=== PATIENT | male | born 1960 | race Caucasian/White ===

== ENCOUNTER 2025-01-05 21:09 | Emergency (ER) | payer OTHER, SELFPAY ==
[2025-01-05 21:10] VITALS: BP 145/104
--- NOTE | 2025-01-05 22:42 | ED.GENMED ---
History of Present Illness
General
Chief Complaint: Skin Surface Trauma
Source: patient
Time Seen by Provider: 01/05/25 21:27
History of Present Illness
History of Present Illness:
Note:
CHIEF COMPLAINT(S)
The patient presents with bleeding from a laceration on his finger after cutting a pineapple.
HISTORY OF PRESENT ILLNESS
The patient is a 64-year-old male with a history of a stroke approximately four to five years ago, currently on Rivaroxaban (20 mg for atrial fibrillation) and Amiodarone for atrial fibrillation management. The patient reports attempting to
self-manage a finger laceration sustained about two hours prior while cutting a pineapple. The laceration has resulted in persistent bleeding. The patient expresses concern about the bleeding not stopping, although he does not perceive a significant
loss in blood volume. There is no associated pain upon showering and he denies a significant impact on his functional status despite being left-handed. He expresses awareness of previous experiences where casual contact with objects could restart
bleeding.
PHYSICAL EXAM
- loss of skin less than one centimeter on the lateral aspect of the nail bed on the third digit of the left hand.
- Normal distal capillary refill in the affected digit as well as the rest of the digits.
- Normal tendon function for both flexor and extensor tendons.
- Nursing notes reviewed and vital signs reviewed.
PROBLEM LIST
Acute:
1. Finger laceration with persistent bleeding
2. Uncontrolled hypertension
Chronic:
1. Atrial fibrillation
2. History of cerebrovascular accident (stroke)
PLAN
- Application of chemical adjuncts including Tranexamic Acid (TXA) and hemostatic agents to promote clotting and stop the bleeding from capillary damage.
- Reinforcement of pressure application to the affected area.
- Education on wound care and recognition of signs that would require further medical review, given the patients anticoagulation therapy.
DIFFERENTIAL DIAGNOSIS
The Differential Diagnosis includes, in no particular order and is not limited to:
1. Simple laceration
2. Skin avulsion
3. Hemophilia or coagulopathy exacerbated by anticoagulation
4. Subungual hematoma
5. Paronychia
6. Deep skin infection
7. Nail bed injury
8. Raynauds disease
9. Peripheral vascular disease
10. Complication of anticoagulant therapy
Disposition:
SUMMARY OF ENCOUNTER
The patient, a 64-year-old male with a history of atrial fibrillation managed on Rivaroxaban and Amiodarone, presented to the emergency department with a finger laceration sustained while cutting a pineapple. The laceration, located on the lateral
aspect of the nail bed of the third digit on the left hand, was bleeding persistently. The wound was treated in the emergency department using chemical adjuncts such as Tranexamic Acid (TXA) and hemostatic agents like gelatin foam (Gelfoam) to stop
the bleeding. A second application of TXA and Gelfoam was followed by a sterile dressing to ensure hemostasis. No antibiotics were deemed necessary, and tetanus vaccination was confirmed to be up to date.
DISPOSITION
Discharge.
PLAN
Leave the sterile dressing in place for 40 hours. Monitor for any signs of infection or complications. Return to the emergency department if bleeding resumes or other issues arise.
PATIENT EDUCATION AND COUNSELING
The patient was instructed on proper wound care, the importance of keeping the dressing in place, and signs to watch for that would necessitate a return visit to the emergency department, such as renewed bleeding or signs of infection.
FOLLOW-UP INSTRUCTIONS
Advised to follow up with a primary care provider for further evaluation and management if any complications arise or if the healing process is not satisfactory.
MEDICATION RECONCILIATION
- Rivaroxaban
MEDICAL DECISION MAKING
-Complexity of Data Reviewed: Chronic conditions affecting care include atrial fibrillation and history of cerebrovascular accident (stroke). Differential diagnosis considered conditions such as simple laceration, skin avulsion, exacerbated
coagulopathy, nail bed injury, uncontrolled hypertension and complications from anticoagulant therapy.
-Data:
Category 1: External record reviewed involved confirming medication usage, particularly the anticoagulant Rivaroxaban.
Category 3: Prescription medication was not prescribed as the laceration was managed with hemostatic agents, negating the need for further pharmacologic interventions.
-Risk:
Consideration of Admission/Observation: Escalation of care including admission/observation was considered given the complexity and risk of the patients anticoagulation therapy combined with a bleeding wound. However, the decision was made for
outpatient management due to successful hemostasis, stable condition upon reevaluation, and the patients ability to follow up reliably. Blood pressure is noted to be elevated but likely related from today's injury and will advise close outpatient
follow-up
DIAGNOSIS
- Laceration of finger, uncomplicated (ICD-10: S61.211A)
- Anticoagulant therapy management (ICD-10: Z79.01)
Past History
Past History
ED Past Medical History: None
ED Past Surgical History: Other (hernia)
Social History
Tobacco: Smoker
Alcohol: Occasional
Drug: None
Personal:
Living: with family
Phy Exam
Physical Exam
Physical Exam:
.
Course
Orders/Labs/Results
Orders:
Orders
01/05/25 21:46
Tranexamic Acid 1,000 mg .ROUTE .STK-MED ONE
Vital Signs
Initial and Last Documented VS:
Initial Vital Signs
Temp Pulse Resp BP Pulse Ox
98.2 F 71 18 145/104 100
01/05/25 21:10 01/05/25 21:10 01/05/25 21:10 01/05/25 21:10 01/05/25 21:10
Last Documented Vital Signs
Temp Pulse Resp BP Pulse Ox
98.2 F 71 18 145/104 100
01/05/25 21:10 01/05/25 21:10 01/05/25 21:10 01/05/25 21:10 01/05/25 21:10
*Pulse Oximetry
SaO2: 100
Oxygen Mode of Delivery: Room air
Patient hypoxic: no
*Critical Care Note
Total Time (30-74mins, 75-104mins- exclusive of procedures): Not Applicable
ED Attending Note
-
Portions of this chart may have been created with voice recognition software.� Occasional wrong word or��sound alike� substitutions may have occurred due to the inherent limitations of voice recognition software.
Discharge Plan
Departure
Patient Disposition: Home (Routine Discharge)
Date of Disposition: 01/05/25
Time of Disposition: 22:44
Patient with high blood pressure during this ER visit?: Yes
Discharge Problem:
Avulsion of skin, Hemorrhage from wound
Instructions: Wound Care (DC), BLOOD PRESSURE
Prescriptions:
No Action
atorvastatin 80 MG tablet
80 mg PO QPM Qty: 30 0RF
clopidogrel 75 MG tablet
75 mg PO DAILY Qty: 2 0RF
aspirin 81 MG tablet,chewable
81 mg PO DAILY Qty: 2 0RF
Rx Instructions:
last dose 12/02.
diltiazem HCl 120 MG capsule,extended release 24hr
120 mg PO DAILY Qty: 30 0RF
apixaban [Eliquis] 5 MG tablet
5 mg PO BID Qty: 60 0RF
Referrals:
Emanuel Lopez CRNP [Family Provider, Family Practice]
Activity Restrictions/Additional Instructions:
Your blood pressure was elevated while in the Emergency Department, please have your doctor re-evaluate it in the next 48 hours as untreated hypertension may lead to serious complications.
Please leave dressing intact for the next 48 hours. After that, change dressing daily. You may apply Vaseline with dressing changes. Return immediately for bleeding, redness, swelling, worsening pain or any other concerns. Please see your doctor
in the next 3 to 5 days for follow-up and reevaluation.
Interventions
Interventions:
*Risk Screen - Suicide Last Done: 01/05/25 21:13
*General Assessment Last Done: 01/05/25 21:13
*Neglect/Abuse Screening Last Done: 01/05/25 21:13
*ED- Fall Risk Assessment Last Done: 01/05/25 21:23
*ED COVID-19 Vaccine History Last Done: 01/05/25 21:23
ED-Skin Assessment Last Done: 01/05/25 21:23
Discharge Date and Time
Print Language: GERMAN
[2025-01-05 22:56] VITALS: BP 138/87
== END 2025-01-05 22:55 | disposition home or self-care (01) ==
LOC: EMR 21:09
PROVIDERS: EMERGENCY PHYSICIAN Emergency Medicine; FAMILY PHYSICIAN Nurse Practitioner Family
DX: S61.213A Laceration without foreign body of left middle finger without damage to nail, initial encounter (principal); W26.0XXA Contact with knife, initial encounter; Y93.G1 Activity, food preparation and clean up; I48.91 Unspecified atrial fibrillation; F17.200 Nicotine dependence, unspecified, uncomplicated; Z86.73 Personal history of transient ischemic attack (TIA), and cerebral infarction without residual deficits; Z79.899 Other long term (current) drug therapy; Z79.01 Long term (current) use of anticoagulants
CPT/HCPCS: 99282